=== PATIENT | female | born 1980 | race Asian ===

== ENCOUNTER 2016-10-13 18:57 | Emergency (ER) | payer BC, OTHER ==
[~2016-10-13] VITALS: Ht 157.5 cm; Wt 56.1 kg
[~2016-10-13 18:57] MED LIST: CIPR500T4 PO; PHEN-426 PO
[2016-10-13 19:07] VITALS: BP 133/98; PULSE 107; RESP 18; TEMP 98.9; O2SAT 99
[2016-10-13] MEDS ORDERED: BACT800T5 PO (19:26)
[2016-10-13] MEDS ORDERED: CEPH500T PO (19:26)
[2016-10-13] MEDS ORDERED: LIDOCAINE 1%/EPINEPHrine 1:100,000 SOLN 20 ML VIAL INFIL ONE (19:30)
--- NOTE | 2016-10-13 19:34 | PD ---
HPI Chief Complaint: Skin Problem Time Seen by Provider: 19:28 Travel History International Travel<30 days: No Contact w/Intl Traveler<30days: No Traveled to known affect area: No History of Present Illness HPI Patient is a 36-year-old female with history of IVDA presenting with multiple skin abscesses. Present for 3 days. She reports one of the right anterior cubital fossa and one each on each forearm. On the right antecubital fossa has been draining spontaneously since today. They're moderately painful. She states she has a history of opioid abuse and has been on Suboxone but for the last several weeks has been allowing someone to inject her with Dilaudid. She denies a history of MRSA. She denies . She denies fever, chills, nausea and vomiting. She denies any chronic medical conditions. PFSH Past Medical History ADHD: Yes Asthma: Yes Autoimmune Disease: No Bipolar Disorder: Yes Anxiety: Yes Cancer: No Cardiovascular Problems: No Diminished Hearing: No Endocrine: No Gastrointestinal Disorders: No Genitourinary: Yes Immune Disorder: No Implanted Vascular Access Dvce: No Musculoskeletal: No Neurologic: No Psychiatric: Yes (BI POLAR) Reproductive: No Respiratory: Yes (asthma) Immunizations Current: Yes Tetanus Vaccination: < 5 Years Influenza Vaccination: No ?: Not LMP: 2 weeks Menopausal: No : 1 Para: 0 Miscarriage: 1 Tubal Ligation: No Past Surgical History Other Surgery: No Social History Alcohol Use: No Tobacco Use: Yes (/2 PPD) Substance Use: Yes (iv opiods) Allergies-Medications (Allergen,Severity, Reaction): Coded Allergies: Penicillin (Verified Allergy, Unknown, HIVES, 10/13/16) Reported Meds & Prescriptions Reported Meds & Active Scripts Active Cephalexin 500 Mg Tab 500 Mg PO Q6H Bactrim DS (Sulfamethoxazole-Trimethoprim) 800-160 Mg Tab 1 Tab PO BID Review of Systems Except as stated in HPI: all other systems reviewed are Neg Physical Exam Narrative GENERAL: Well-developed and well-nourished adult female in no acute distress. SKIN: Patient has a 3 cm spontaneous draining abscess of the right antecubital fossa. Mild erythema and warmth without streaking. There is a 2.5 cm ovoid area of erythema induration on the right proximal forearm in an area approximate 1.5 cm on the left forearm. 1 cm erythematous warm area without streaking central fluctuance on the dorsum of the left hand. No streaking to any of these. No circumferential edema. Track taylor on the bilateral antecubital fossae. Good turgor without tenting. HEAD: Normocephalic and atraumatic. EYES: PERRL bilaterally, 5mm. EOMI bilaterally. No injection or icterus present. No proptosis. Lids without edema or erythema. NECK: Supple, no meningeal signs. Trachea midline, no JVD. CARDIOVASCULAR: Regular rate and rhythm without murmurs, rubs, clicks or gallops. Radial and posterior tibial pulses 2+ bilaterally. No pedal edema. RESPIRATORY: Clear to auscultation bilaterally with symmetrical rise and fall, no distress or use of accessory muscles. LYMPH: Negative bilateral epitrochlear, axillary, supraclavicular, cervical and facial lymphadenopathy. MUSCULOSKELETAL: Skin lesions per above. Normal range of motion of bilateral shoulders, elbows, wrists and freely moving all fingers of the lateral hands. No gait disturbances. Patient freely moving all four extremities spontaneously. Extremities without clubbing, cyanosis, or edema. No obvious deformities. NEUROLOGIC: CN II-XII grossly intact. Awake and alert. Motor grossly within normal limits. Sensation intact and strength 5/5 over radial, median, and ulnar nerve distributions bilaterally.Normal speech. PSYCHIATRIC: Tearful. Anxious. Data Data Last Documented VS Vital Signs Date Time Temp Pulse Resp B/P Pulse Ox O2 Delivery O2 Flow Rate FiO2 10/13/16 19:07 98.9 107 18 133/98 99 Orders Ed Urine Pregnancytest Poc (10/13/16 19:23) Wound Culture And Gram Stain (10/13/16 19:27) Lidocai-Epi 1%-1:100,000 Inj (Xylocaine- (10/13/16 19:30) Acetaminophen (Tylenol) (10/13/16 20:30) Sulfamet-Trimeth Ds 800-160 Mg (Bactrim (10/13/16 20:30) Cephalexin (Keflex) (10/13/16 20:30) MDM Medical Decision Making Medical Screen Exam Complete: Yes Emergency Medical Condition: Yes Differential Diagnosis Abscess versus cellulitis versus IV drug abuse Narrative Course Patient is a 36-year-old afebrile and nontoxic appearing female with a history of IVDA presenting with 4 minor abscesses on the upper extremities. One on the right antecubital fossa is spontaneously draining. Tetanus vaccine up-to-date. Patient's heart rate in triage was tachycardic however on my exam is 98 and regular. She has no systemic complaints. Performed incision and drainage per attached procedure narrative's. UPT negative. Patient was given Bactrim and Keflex(first dose here), which she has been to take safely in the past despite childhood penicillin allergy.See discharge paperwork for further instructions. The plan was discussed with the patient who acknowledged their understanding and agreement. Reinforced the follow-up with primary care is critically important. Patient instructed on emergent conditions that should prompt return to ED. Procedures Procedure Narrative I&D #1 LOCATION: Right antecubital fossa SIZE: 3 cm ANESTHESIA: 1% lidocaine with epi PROCEDURE: The abscess was prepped with Betadine and sterilely draped. The abscess was infiltrated with 1.5 cc of above anesthetic. Incision was made with a #11 blade with length of 1.5 cm and depth of 6 mm. Expressed purulent and bloody material, approximately 8 mL. The wound was copiously irrigated and loculations were broken up. The wound was left open and covered with a sterile dressing. Packing was not done. The patient was advised to keep the dressing clean and dry. Patient tolerated the procedure well. I&D #2 LOCATION: Right forearm SIZE: 2.5 cm ANESTHESIA: 1% lidocaine with epi PROCEDURE: The abscess was prepped with Betadine and sterilely draped. The abscess was infiltrated with 1 cc of above anesthetic. Incision was made with a #11 blade with length of 1 cm and depth of 8 mm. Expressed purulent and bloody material, approximately 4 mL. The wound was copiously irrigated and loculations were broken up. The wound was left open and covered with a sterile dressing. Packing was not done. The patient was advised to keep the dressing clean and dry. Patient tolerated the procedure well. I&D #3 LOCATION: Left forearm SIZE: 1.5 cm ANESTHESIA: 1% lidocaine with epi PROCEDURE: The abscess was prepped with Betadine and sterilely draped. The abscess was infiltrated with 0.5 cc of above anesthetic. Incision was made with a #11 blade with length of 8 mm and depth of 6 cm. Expressed purulent and bloody material, approximately 2 mL. The wound was copiously irrigated and loculations were broken up. The wound was left open and covered with a sterile dressing. Packing was not done. The patient was advised to keep the dressing clean and dry. Patient tolerated the procedure well. I&D #4 LOCATION: Dorsum of left hand SIZE: 1 cm ANESTHESIA: 1% lidocaine with epi PROCEDURE: The abscess was prepped with Betadine and sterilely draped. The abscess was infiltrated with 0.5 cc of above anesthetic. Incision was made with a #11 blade with length of 6 mm and depth of 3 mm. Expressed purulent and bloody material, approximately 1 mL. The wound was copiously irrigated and loculations were broken up. The wound was left open and covered with a sterile dressing. Packing was not done. The patient was advised to keep the dressing clean and dry. Patient tolerated the procedure well. Diagnosis Primary Impression: Abscess Additional Impressions: IV drug abuse Opioid abuse Referrals: [facility] Patient Instructions: Abscess Incision and Drainage (ED), General Instructions , Opioid Dependence (ED) Additional Instructions: Keep area clean, dry, and covered with dressing/bandage Apply warm compresses daily to help with drainage Warm water Epsom salt soaks will help promote drainage Wound will continue to drain which is normal Take Tylenol or ibuprofen for pain Take medications as directed Recommend discontinuing use of IV opioids and follow-up with the [facility] for opioid dependence treatment Follow-up with PCP in 2 days, call laboratory for wound culture results Return to the ED for any acute worsening of symptoms including worsening swelling, spreading redness, fever, chills, nausea and vomiting Med/Other Pt SpecificInfo: Prescription(s) given Scripts Cephalexin 500 Mg [id number] Mg PO Q6H #40 TAB Prov:Latoya Crook DO 10/13/16 Sulfamethoxazole-Trimethoprim (Bactrim DS)800-160 Mg Tab1 Tab PO BID #20 TAB Prov:Latoya Crook DO 10/13/16 Disposition: 01 DISCHARGE HOME Condition: Stable Min Lewis III Oct 13, 2016 19:34
[2016-10-13] MEDS ORDERED: SULFAMETHOXAZOLE-TRIMETHOPRIM DS 800-160 MG TAB PO ONE (20:30)
[2016-10-13] MEDS ORDERED: ACETAMINOPHEN 325 MG TAB PO ONE (20:30)
[2016-10-13] MEDS ORDERED: CEPHALEXIN MONOHYDRATE 500 MG CAP PO ONE (20:30)
[2016-10-13 20:57] VITALS: BP 130/92
== END 2016-10-13 20:57 | disposition home or self-care (01) ==
LOC: PHEFT 18:57
DX: L02.414 Cutaneous abscess of left upper limb (principal); L02.413 Cutaneous abscess of right upper limb; B95.62 Methicillin resistant Staphylococcus aureus infection as the cause of diseases classified elsewhere; B96.89 Other specified bacterial agents as the cause of diseases classified elsewhere; B95.2 Enterococcus as the cause of diseases classified elsewhere; J45.909 Unspecified asthma, uncomplicated; F17.210 Nicotine dependence, cigarettes, uncomplicated; F11.10 Opioid abuse, uncomplicated
CPT/HCPCS: 10061; 84703; 86403; 87070; 87077; 87186; 87205

== ENCOUNTER 2017-10-23 18:41 | Emergency (ER) | payer OTHER ==
[~2017-10-23] VITALS: Ht 157.5 cm; Wt 68.0 kg
[~2017-10-23 18:41] MED LIST changes: +BACT800T5 PO; +CEPH500T PO; -CIPR500T4 PO; -PHEN-426 PO
[2017-10-23 18:44] VITALS: BP 135/86; PULSE 112; RESP 16; TEMP 98.4; O2SAT 99
--- NOTE | 2017-10-23 18:55 | PD ---
HPI Chief Complaint: Skin Problem Time Seen by Provider: 18:48 Travel History International Travel<30 days: No Contact w/Intl Traveler<30days: No Traveled to known affect area: No History of Present Illness HPI 27-year-old female presents to the emergency department for evaluation of large mass to the right breast that she states started 3 days ago. Patient is tearful my exam. Patient states she is currently on prednisone for an upper respiratory infection. She is not breast-feeding. She denies . No exacerbating or alleviating factors. Moderate severity. PFSH Past Medical History ADHD: Yes Asthma: Yes Autoimmune Disease: No Bipolar Disorder: Yes Anxiety: Yes Cancer: No Cardiovascular Problems: No Diminished Hearing: No Endocrine: No Gastrointestinal Disorders: No Genitourinary: Yes Immune Disorder: No Implanted Vascular Access Dvce: No Musculoskeletal: No Neurologic: No Psychiatric: Yes (BI POLAR) Reproductive: No Respiratory: Yes (asthma) Immunizations Current: Yes Menopausal: No : 1 Para: 0 Miscarriage: 1 Tubal Ligation: No Past Surgical History Other Surgery: No Social History Alcohol Use: No Tobacco Use: Yes (1/2 PPD) Substance Use: Yes (iv opiods) Allergies-Medications (Allergen,Severity, Reaction): Coded Allergies: penicillin G (Unverified Allergy, Unknown, HIVES, 10/23/17) Reported Meds & Prescriptions Reported Meds & Active Scripts Active No Active Prescriptions or Reported Medications Review of Systems Except as stated in HPI: all other systems reviewed are Neg Physical Exam Narrative GENERAL: Well-nourished, well-developed female patient, afebrile. SKIN: Focused skin assessment warm/dry. Patient has large mass to the 5 o' clock position of the right breast with some mild erythema over the right breast suspicious for abscess. HEAD: Normocephalic. Atraumatic. EYES: No scleral icterus. No injection or drainage. NECK: Supple, trachea midline. No JVD or lymphadenopathy. CARDIOVASCULAR: Regular rate and rhythm without murmurs, gallops, or rubs. RESPIRATORY: Breath sounds equal bilaterally. No accessory muscle use. Lungs sounds are clear to auscultation. MUSCULOSKELETAL: No cyanosis, or edema. Data Data Last Documented VS Vital Signs Date Time Temp Pulse Resp B/P (MAP) Pulse Ox O2 Delivery O2 Flow Rate FiO2 10/23/17 18:44 98.4 112 16 135/86 (102) 99 Orders Orders Complete Blood Count With Diff (10/23/17 18:53) Basic Metabolic Panel (Bmp) (10/23/17 18:53) Us Breast Unilateral (10/23/17 ) Iv Access Insert/Monitor (10/23/17 18:53) Ed Urine Pregnancytest Poc (10/23/17 18:55) Labs Laboratory Tests Test 10/23/17 18:45 White Blood Count 10.8 TH/MM3 Red Blood Count 4.45 MIL/MM3 Hemoglobin 13.4 GM/DL Hematocrit 38.3 % Mean Corpuscular Volume 86.0 FL Mean Corpuscular Hemoglobin 30.2 PG Mean Corpuscular Hemoglobin Concent 35.1 % Red Cell Distribution Width 12.8 % Platelet Count 367 TH/MM3 Mean Platelet Volume 7.8 FL Neutrophils (%) (Auto) 61.1 % Lymphocytes (%) (Auto) 25.2 % Monocytes (%) (Auto) 6.7 % Eosinophils (%) (Auto) 5.4 % Basophils (%) (Auto) 1.6 % Neutrophils # (Auto) 6.6 TH/MM3 Lymphocytes # (Auto) 2.7 TH/MM3 Monocytes # (Auto) 0.7 TH/MM3 Eosinophils # (Auto) 0.6 TH/MM3 Basophils # (Auto) 0.2 TH/MM3 CBC Comment DIFF FINAL Differential Comment Blood Urea Nitrogen 8 MG/DL Creatinine 0.55 MG/DL Random Glucose 91 MG/DL Calcium Level 8.8 MG/DL Sodium Level 137 MEQ/L Potassium Level 3.4 MEQ/L Chloride Level 103 MEQ/L Carbon Dioxide Level 28.2 MEQ/L Anion Gap 6 MEQ/L Estimat Glomerular Filtration Rate 124 ML/MIN MDM Medical Decision Making Medical Screen Exam Complete: Yes Emergency Medical Condition: Yes Medical Record Reviewed: Yes Interpretation(s) Last Impressions Breast Ultrasound 10/23/17 0000 Signed Impressions: Service Date/Time: Monday, October 23, 2017 19:09 - CONCLUSION: 1. No sonographic evidence of abscess. 2. Please note that this examination is not performed for the purposes of evaluation/screening for breast cancer and no BI-RADS assessment is performed. The area of concern should be followed on a clinical basis. Adolfo Jimenez MD Differential Diagnosis Breast abscess versus cellulitis versus mass Narrative Course 37-year-old female presents to the emergency department for evaluation of lump to the right breast for 3 days. Physical exam is suspicious for breast abscess. IV access obtained. CBC, BMP urine test are ordered and pending. Ultrasound of the right breast is ordered and pending. CBC is unremarkable. BMP shows no acute abnormality. UPT is negative. US shows no sonographic evidence of abscess. I will Start the patient antibiotics for caution of a breast cellulitis. She is instructed to follow-up with her primary care physician for a mammogram to rule out breast cancer. She verbalizes agreement and understanding to this. The patient was discharged in stable condition with instructions, including return instructions and follow up instructions. Diagnosis Primary Impression: Breast mass in female Referrals: Primary Care Physician 2 days Patient Instructions: Breast Mass (ED), General Instructions Additional Instructions: Take antibiotics as directed until gone. Warm compresses for 15 minutes 4-5 times daily. Follow-up with primary care physician for a mammogram. Return to the emergency department for any acute worsening of symptoms. Med/Other Pt SpecificInfo: Prescription(s) given Scripts Cephalexin (Keflex) 500 Mg Cap 500 MG PO Q6H for Infection for 10 Days, #40 CAP 0 Refills Prov: Ruby Cassidy 10/23/17 Sulfamethoxazole-Trimethoprim (Bactrim DS) 800-160 Mg Tab 1 TAB PO BID for Infection, #20 TAB 0 Refills Prov: Ruby Cassidy 10/23/17 Disposition: 01 DISCHARGE HOME Condition: Stable Ruby Cassidy Oct 23, 2017 18:55
--- NOTE | 2017-10-23 19:49 | RADRPT ---
EXAM DATE/TIME: 10/23/2017 19:09 [facility] COMPARISON: No previous studies available for comparison. INDICATIONS : Palpable right breast lump. MEDICAL HISTORY : Asthma. SURGICAL HISTORY : section. ENCOUNTER: Initial ACUITY: 3 days PAIN SCORE: 0/10 LOCATION: Right breast. FINDINGS: Real time ultrasound examination was targeted to a palpable area in the right breast which spans from 1: 00 to 5:00 and an from 1 cm to 8 cm from the nipple. No focal fluid collections seen. Fairly homoge neous echotexture to the soft tissues. No dilated ducts. No focal hyperemic areas seen by color Dop pler. CONCLUSION: 1. No sonographic evidence of abscess. 2. Please note that this examination is not performed for the purposes of evaluation/screening for br east cancer and no BI-RADS assessment is performed. The area of concern should be followed on a clin ical basis. Adolfo Jimenez MD on October 23, 2017 at 19:44 Board Certified Radiologist. This report was verified electronically.
[2017-10-23 19:54] LABS: AUTOMATED NEUTROPHIL # 6.6 TH/MM3 (1.8-7.7); BASOPHIL # 0.2 TH/MM3 (0-0.2); BASOPHIL % 1.6 % (0.0-2.0); EOSINOPHIL # 0.6 TH/MM3 (0-0.4); EOSINOPHIL % 5.4 % (0.0-4.0); HEMATOCRIT 38.3 % (35.0-46.0); HEMOGLOBIN 13.4 GM/DL (11.6-15.3); LYMPH % 25.2 % (9.0-44.0); LYMPHOCYTE # 2.7 TH/MM3 (1.0-4.8); MEAN CORPUSCULAR HEMOGLOBIN 30.2 PG (27.0-34.0); MEAN CORPUSCULAR HGB CONC 35.1 % (32.0-36.0); MEAN PLATELET VOLUME 7.8 FL (7.0-11.0); MONO % 6.7 % (0.0-8.0); MONOCYTE # 0.7 TH/MM3 (0-0.9); NEUT % 61.1 % (16.0-70.0); PLATELET COUNT 367 TH/MM3 (150-450); RED BLOOD COUNT 4.45 MIL/MM3 (4.00-5.30); RED CELL DISTRIBUTION WIDTH 12.8 % (11.6-17.2); WHITE BLOOD COUNT 10.8 TH/MM3 (4.0-11.0)
[2017-10-23 20:04] LABS: CALCIUM 8.8 MG/DL (8.5-10.1)
[2017-10-23 20:05] LABS: BICARBONATE 28.2 MEQ/L (21.0-32.0)
[2017-10-23 20:09] LABS: CREATININE 0.55 MG/DL (0.50-1.00)
[2017-10-23] MEDS ORDERED: BACT800T5 PO (20:17)
[2017-10-23] MEDS ORDERED: CEPH-460 PO (20:17)
[2017-10-23] MEDS ORDERED: SULFAMETHOXAZOLE-TRIMETHOPRIM DS 800-160 MG TAB PO ONE (20:30)
[2017-10-23] MEDS ORDERED: CEPHALEXIN MONOHYDRATE 500 MG CAP PO ONE (20:30)
== END 2017-10-23 20:35 | disposition home or self-care (01) ==
LOC: PHEFT 18:41
DX: N63.10 Unspecified lump in the right breast, unspecified quadrant (principal); J45.909 Unspecified asthma, uncomplicated; F31.9 Bipolar disorder, unspecified; F17.210 Nicotine dependence, cigarettes, uncomplicated; Z88.0 Allergy status to penicillin
CPT/HCPCS: 76642; 80048; 84703; 85025; 99284